=== PATIENT | male | born 1965 ===

== ENCOUNTER 2019-12-16 06:24 | Day surgery (SDC) | payer OTHER ==
[~2019-12-16 06:24] MED LIST: LOSARTAN-HCTZ1 EAC1 PO; SYNTHROID50 MCG PO
== END 2019-12-16 16:15 | disposition home or self-care (01) ==
LOC: CIR.AMB 06:24 → ADM 08:15 → CIR.AMB 16:15
PROVIDERS: ATTEND Orthopaedic Surgery Hand Surgery
DX: M65.232 Calcific tendinitis, left forearm (principal); M65.4 Radial styloid tenosynovitis [de Quervain]; Z20.828 Contact with and (suspected) exposure to other viral communicable diseases